=== PATIENT | male | born 1945 | race Caucasian/White ===

== ENCOUNTER → 2018-07-26 12:12 | Outpatient (CLI) | payer MEDICARE, OTHER, SELFPAY ==
--- NOTE | 2018-07-26 12:20 | US_ITS ---
STUDY: ULTRASOUND - URINARY BLADDER REASON FOR EXAM: Male, 72 years old. Urinary frequency TECHNIQUE: Ultrasound evaluation of the urinary bladder was performed with real-time and static choudhary-scale imaging. COMPARISON: None. FINDINGS: There is no right UVJ calculus. There is a visualized right ureteral jet. There is no left UVJ calculus. There is a visualized left ureteral jet. The distended volume of the urinary bladder is 76.3 ml. The empty volume of the urinary bladder is 26.4 ml. The bladder wall is within normal limits. The bladder wall measures 3 mm. There is no demonstrated bladder wall mass lesion. There are no demonstrated bladder calculi. Prostatomegaly is noted. US/Post Void Residual Bladder IMPRESSION: Normal ultrasound of the urinary bladder. Prostatomegaly. Electronically Signed: Yousuf Natarajan MD at 8:54 EST Tel , Service support ,
== END ==
PROVIDERS: Family Provider Internal Medicine; PCP Internal Medicine; Referring Provider Internal Medicine; Visit Provider Internal Medicine
DX: R35.0 Frequency of micturition (principal)
CPT/HCPCS: 51798

== ENCOUNTER → 2020-09-08 16:14 | Outpatient (CLI) | payer MEDICARE, OTHER, SELFPAY ==
[2015-02-14 16:41] VITALS: BMI 28.5
--- NOTE | 2020-09-08 16:19 | RAD_ITS ---
STUDY: X-RAY - THORACIC SPINE REASON FOR EXAM: Male, 74 years old. thoracic back pain, mid right side -- stands on feet for many hours a day TECHNIQUE: 3 view(s) of the thoracic spine were obtained. COMPARISON: None. FINDINGS: Normal kyphosis of the thoracic spine. There is no substantial scoliosis. There is multilevel endplate spondylosis of the thoracic vertebrae. There is multilevel disc space narrowing of the thoracic spine. The soft tissue structures are unremarkable. 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 Electronically Signed: Barry Sexton MD at 16:46 EST Tel , Service support ,
== END ==
PROVIDERS: PCP Internal Medicine; Referring Provider Internal Medicine; Visit Provider Internal Medicine
DX: M54.6 Pain in thoracic spine (principal)
CPT/HCPCS: 72072

== ENCOUNTER 2020-09-21 09:59 | Outpatient (RCR) | payer MEDICARE, OTHER, SELFPAY ==
[2015-02-14 16:41] VITALS: BMI 28.5
== END 2020-09-21 19:00 | disposition home or self-care (01) ==
LOC: PT 09:59
PROVIDERS: PCP Internal Medicine; Referring Provider Internal Medicine; Visit Provider Internal Medicine
DX: M54.6 Pain in thoracic spine (principal)

== ENCOUNTER 2021-08-06 11:32 | Outpatient (CLI) | payer MEDICARE, OTHER, SELFPAY ==
[2021-08-06 11:42] VITALS: BP 131/78; PULSE 84; RESP 16; TEMP 36.3; O2SAT 100; BMI 30.1
[2021-08-06] MEDS: 0.9% Saline Lock 10 ML Syringe IV (11:52)
[2021-08-06 12:49] VITALS: BP 114/75; PULSE 63; RESP 16; TEMP 36.9; O2SAT 97
[2021-08-06 13:49] VITALS: BP 113/76; PULSE 60; RESP 16; TEMP 36.9; O2SAT 97
== END 2021-08-06 14:00 | disposition home or self-care (01) ==
LOC: MS3OUT 11:32 → MS3 11:33
PROVIDERS: PCP Internal Medicine; Referring Provider Nurse Practitioner Adult Health; Visit Provider Nurse Practitioner Adult Health
DX: U07.1 COVID-19 (principal)
CPT/HCPCS: J7050; M0245; Q0245; A4216

== ENCOUNTER → 2021-08-17 16:09 | Outpatient (CLI) | payer MEDICARE, OTHER, SELFPAY ==
--- NOTE | 2021-08-17 16:12 | RAD_ITS ---
STUDY: X-RAY CHEST REASON FOR EXAM: Male, 75 years old. SHORTNESS OF BREATH TECHNIQUE: PA and lateral views of the chest. COMPARISON: 02/14/2015 FINDINGS: The lungs are clear and expanded. There is no demonstrated pleural abnormality. Normal size heart. Normal mediastinum and renay. Normal visualized pulmonary arteries. Normal visualized aortic arch and descending thoracic aorta. There are diffuse degenerative changes of the visualized thoracic spine. Degenerative changes of the left shoulder. Operative changes of the right humeral head partially visualized. There is no demonstrated abnormality of the visualized soft tissue structures of the upper abdomen. RAD/Chest PA and Lateral IMPRESSION: No acute cardiopulmonary process. Electronically Signed: Jorge Ho MD ([facility]) at 16:27 EST , Service support ,
[2021-08-17 18:25] LABS: Erythrocyte Sedimentation Rate 9 mm/hr (0-20)
[2021-08-17 18:32] LABS: D-Dimer Quantitative (DVT/PE) 0.49 FEU/ug/m (0.27-0.49)
[2021-08-17 18:54] LABS: CRP < 2.90 mg/L (0.0-3.0); Troponin-I HS 6 pg/mL (3.0-78.0)
== END ==
PROVIDERS: PCP Internal Medicine; Referring Provider Internal Medicine; Visit Provider Internal Medicine
DX: R06.02 Shortness of breath (principal)
CPT/HCPCS: 36415; 71046; 84484; 85379; 85652; 86140

== ENCOUNTER → 2022-04-22 | Outpatient (CLI) | payer MEDICARE, OTHER, SELFPAY | END | disposition home or self-care (01) | LOC: PSN 07:51 | PROVIDERS: PCP Internal Medicine; Referring Provider Internal Medicine; Visit Provider Internal Medicine | DX: I49.8 Other specified cardiac arrhythmias (principal) | CPT/HCPCS: 93225; 93226 ==

== ENCOUNTER → 2022-05-06 | Outpatient (CLI) | payer SELFPAY ==
--- NOTE | 2022-05-06 08:31 | CT_ITS ---
INDICATION: SCREENING EXAMINATION: CT CHEST WITHOUT CONTRAST - CT Chest W/O Contrast Injection. Overread examination. TECHNIQUE: Helically acquired images were obtained of the chest. A radiation dose optimization technique was used for this scan. IV Contrast dosage and agent: None. COMPARISON: None. FINDINGS: LUNGS, PLEURA AND LARGE AIRWAYS: Hyperinflation. No pleural effusion or thickening. No pneumothorax. THYROID: No thyroid lesions. HEART AND PERICARDIUM: Heart size is normal. No pericardial effusion. CORONARY ARTERIES: Coronary artery calcification is seen. VESSELS: Thoracic aorta is not dilated. MEDIASTINUM AND LINDA: Small mediastinal lymph nodes. Esophagus is unremarkable. No hiatal hernia. UPPER ABDOMEN: Scattered small hepatic cysts. BONES: No suspicious lytic or blastic abnormality. CT/Limited Chest CT Cardiac Only IMPRESSION: Hyperinflation. Coronary artery calcification. Electronically Signed: Manny Velasquez MD at 10:33 EDT ,
[2022-05-06 08:47] VITALS: BP 108/78; PULSE 55; RESP 14; TEMP 36.1; O2SAT 97; BMI 28.3
--- NOTE | 2022-05-06 12:12 | CA.SCORE ---
Calcium Scoring Date of Study:: 05/06/22 Coronary Calcium Scoring: High-resolution Computed Tomographic imaging of the chest was performed on [05/06/2022], with particular attention paid to the coronary arteries. Images from the examination were analyzed for the presence and extent of coronary artery calcification , using coronary calcium quantification software. The patient tolerated the procedure well and there were no complications. The results of the coronary calcification analysis are provided below. Findings Coronary Artery Left Main (LM): 9.5 Left Anterior Descending (LAD): 0 Left Circumflex (LCX): 0 Right Coronary Artery (RCA): 5 Total Agatston Score: 14.5 Calcium Scoring Interpretation: 0 No identifiable atherosclerotic plaque. Very low cardiovascular disease risk. <5% chance of presence coronary artery disease A Negative Examination 1-10 Minimal Plaque burden. Significant coronary artery disease very unlikely. 11-100 Mild plaque burden. Likely mild or minimal coronary atherosclerosis. 101-400 Moderate plaque burden Moderate non-obstructive coronary artery disease highly likely. Over 400 Extensive plaque burden. High likelihood of at least one significant coronary stenosis (>50% diameter)
== END | disposition home or self-care (01) ==
PROVIDERS: PCP Internal Medicine; Referring Provider Internal Medicine; Visit Provider Internal Medicine
DX: Z13.6 Encounter for screening for cardiovascular disorders (principal)
CPT/HCPCS: 75571; 76380

== ENCOUNTER → 2023-12-22 | Outpatient (CLI) | payer MEDICARE, OTHER, SELFPAY ==
--- NOTE | 2023-12-22 17:06 | STRESSREP_ITS ---
Stress Test Report Exercise myocardial perfusion stress test. 78-year-old man with a history of shortness of breath and chest pain Stress protocol: Resting EKG demonstrates sinus bradycardia with a rate of 52 bpm resting blood pressure is 128/78 mmHg. The patient exercised according to the regular Valente protocol for a total duration of 7 minutes attaining a maximum heart rate of 141 bpm which was 97% of maximum predicted heart rate; the maximum workload was 10 METS metabolic equivalents. At rest there were no ST or T wave changes noted to suggest ischemia and at peak exercise upsloping ST changes only were noted which did not meet the criteria for ischemia. No clinical angina was noted the test was terminated due to the target heart rate being achieved/fatigue. The peak blood pressure was 184/80 mmHg. Rate-pressure product was 18,400. Myocardial perfusion protocol. 14.3 mCi of technetium 99m sestamibi was injected at rest. The patient exerc ised according to regular Valente protocol for total duration of 7 minutes and at peak exercise 44.7 mCi of technetium 99m sestamibi was injected stress images were obtained stress and rest images were reconstructed in comparing the short axis vertical long and horizontal long axis. Gated images were also obtained. Perfusion SPECT analysis: Review of the stress images demonstrate normal uptake of tracer noted in all areas of the myocardium. The resting images similarly demonstrate normal uptake of tracer noted in all areas of the myocardium. No areas of reversibility are noted to suggest ischemia no previous infarct was noted. Gated SPECT analysis: The gated ejection fraction is 56%. Conclusion: Normal exercise myocardial perfusion stress test at a high workload Preserved ejection fraction.
== END | disposition home or self-care (01) ==
LOC: CVS 06:32
PROVIDERS: PCP Internal Medicine; Referring Provider Internal Medicine; Visit Provider Internal Medicine
DX: R07.9 Chest pain, unspecified (principal)
CPT/HCPCS: 78452; 93017; A9500; A4216